=== PATIENT | male | born 1985 | race Two or more races ===

== ENCOUNTER 2025-08-10 11:06 | Emergency (ER) | payer SELFPAY ==
--- NOTE | 2025-08-10 11:10 | XR_ITS ---
Examination: Left elbow 3 views Technique: Elbow AP, oblique, lateral 3 views Exam date and time: August 10, 2025, 11:10 a.m INDICATIONS: Injury to the elbow today, elbow pain. FINDINGS: No fracture or dislocation No foreign body IMPRESSION: No fracture or dislocation.
[2025-08-10 11:29] VITALS: BP 135/87; PULSE 118; RESP 18; TEMP 36.6; O2SAT 95; BMI 47.2
--- NOTE | 2025-08-10 11:39 | EDNOTE_ITS ---
ED General RME/HPI General Chief complaint: General Adult/Misc Complain Stated complaint: L ELBOW PAIN Time Seen by Provider: 08/10/25 11:16 Arrival date/time: 08/10/25 11:06 40-year-old male patient came in for evaluation regarding left elbow injury. Incident happened earlier today while in the [employer], patient sustained injury to the left elbow resulting to pain and inability to fully extend the elbow. Pain is described as dull ache, severity moderate. Patient denies any other injury. No medication was taken prior to ER visit. Related Data Previous Rx's ?Medication ?Instructions ?Recorded ibuprofen 800 mg tablet 800 mg PO TID PRN pain #30 t abs 08/10/25 Review of Systems Review of Systems Narrative Review of Systems: Review of system reviewed and within normal limits except mentioned in HPI ED Exam Narrative Physical exam: VITAL SIGNS: Reviewed. GENERAL APPEARANCE: Alert and interactive, follows commands, no acute distress, HEAD AND FACE: Non-traumatic. ENT: PERRL, pink conjunctivitis, eyelid no trauma, Mucous membrane moist. NECK: Supple, nontender, no nuchal rigidity. CHEST: No tenderness, no crepitus, no paradoxical movement, no retractions. LUNGS: Clear, well ventilated, symmetric, no rales, no wheezing, no ronchi, no stridor, good breath sounds bilaterally. HEART: Regular rate, regular rhythm, no murmur, no gallops. ABDOMEN: Soft, positive bowel sounds, nondistended, no guarding, nontender, no rebound, no masses, RECTAL: Deferred. GENITAL: Deferred. NEUROLOGICAL: Gross motor function intact sensory function intact, Appropriate for age. MUSCULOSKELETAL: low back nontender, full range of motion. EXTREMITIES: Left elbow tenderness, no swelling with limitation range of motion. Distal neurovascular status intact SKIN: Color pink, dry, no rash, no lacerations, no abrasions, no contusions. LYMPHATICS: Deferred. Course Quality Measures none Orders Category Date Time Status XR elbow comp LT min 3V Stat Exams 08/10/25 11:10 Completed Ketorolac Inj [Toradol Inj] Med 08/10/25 11:38 Pending 30 mg IM X1 ONE Vital Signs Vital signs: Vital Signs Temperature 97.9 F 08/10/25 11:29 Pulse Rate 118 H 08/10/25 11:29 Respiratory Rate 18 08/10/25 11:29 Blood Pressure 135/87 H 08/10/25 11:29 Pulse Oximetry (%) 95 08/10/25 11:29 Oxygen Delivery Method Room Air 08/10/25 11:29 Discharge Plan Plan Patient Disposition: HOME (Self Care) Discharge Disposition comment: Stable Prescriptions/Referrals Prescriptions/Med Rec: New ibuprofen 800 mg tablet 800 mg PO TID PRN (Reason: pain) Qty: 30 0RF Referrals: Hakan Christianson MD [Primary Care Provider, Family Practice] - In 1 week Problem List Clinical Impression: Sprain of elbow, left Patient/Caregiver Discharge Instructions Discharge Activity: activity as tolerated Education Materials: ED Sprain, Elbow Additional Instructions: Thank you for the opportunity for serving you today. You are stable for dischar ged . You are advised to: Follow-up with your PCP in 1 to 2 days Return to ED for worsening of symptoms Increase oral fluids Take medication as prescribed Wear your arm sling as needed Print Language: Grenadian Stand Alone Forms: Sonal Award Info., Work/School Release, Patient Portal Info Letter MADI/NING Supervising Physician ALVIN Supervising Physician: MD Lisette MDM Narrative MDM hospital course (for use when minimal MDM required): 40-year-old male patient came in for evaluation regarding left elbow injury. Incident happened earlier today [place] [employer], patient sustained injury to the left elbow resulting to pain and inability to fully extend the elbow. Pain is described as dull ache, severity moderate. Patient denies any other injury. No medication was taken prior to ER visit. X-ray of the left elbow came back with no acute pathology noted. Patient was placed in an arm sling. Patient is probably having elbow sprain. Stable for discharge home Medication Administration(s) Medication Administration History Ketorolac Tromethamine (Ketorolac Inj 30 Mg/Ml Vial) 30 mg IM X1 ONE Stop: 08/10/25 11:39 Diagnosis Differential Diagnosis ED Complaint MDM: Elbow sprain, elbow fracture elbow dislocation Diagnoses ruled out and/or further discussions: Elbow sprain
== END 2025-08-10 12:22 | disposition home or self-care (01) ==
PROVIDERS: Emergency Provider Emergency Medicine; PCP Family Medicine
DX: S53.402A Unspecified sprain of left elbow, initial encounter (principal); X58.XXXA Exposure to other specified factors, initial encounter
CPT/HCPCS: 73080; 99282